=== PATIENT | male | born 2005 | race Caucasian/White ===

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

== ENCOUNTER 2025-09-01 16:25 | Emergency (ER) | payer BC ==
[2025-09-01 18:59] VITALS: BP 126/73; PULSE 81
== END 2025-09-01 17:05 | disposition home or self-care (01) ==
LOC: KA.ED 16:25
DX: H72.93 Unspecified perforation of tympanic membrane, bilateral (principal); H66.93 Otitis media, unspecified, bilateral; Z79.899 Other long term (current) drug therapy
CPT/HCPCS: 99283